=== PATIENT | male | born 1945 | race Caucasian/White ===

== ENCOUNTER 2018-07-11 08:05 | Outpatient (CLI) | payer MEDICARE, BC ==
--- NOTE | 2018-07-11 10:27 | RAD ---
LUMBAR SPINE THREE VIEWS: History: 73-year-old male with history of low back pain and lumbar radiculopathy. FINDINGS: Flexion and extension and neutral lateral views of the lumbar spine are performed. Multilevel disc os teophytosis changes are noted. No significant abnormal translation between flexion and extension. Linda inectomy changes at L4 and L5. Potential 5.3 cm diameter aneurysmal dilatation of the abdominal aorta at the level of L2 in the anterior posterior dimension. Additional imaging with ultrasound or CT sca n in this regard should be considered. IMPRESSION: Potentially 5.3 cm diameter aneurysmal dilatation/aneurysm of the abdominal aorta at approximately th e L2 vertebral body level. Additional imaging with ultrasound or CT is recommended in this regard. Ge neralized spondylosis with laminectomy changes. No abnormal translation between flexion and extension . Code T
[2018-07-11] MEDS ORDERED: Gadobenate Dimeglumine 529 MG/1 ML (20ML VIAL) ONE (12:29)
--- NOTE | 2018-07-11 13:01 | MRI ---
MRI OF THE LUMBAR SPINE WITH AND WITHOUT CONTRAST: INDICATION: History of lumbar radiculopathy. COMPARISON: Prior exam dated 06/30/17. CONTRAST: The patient received 20 cc of MultiHance for the examination. FINDINGS: There is stable postsurgical change of laminectomies at L4 and L5. There is multilevel loss of the n ormal disk signal and height at all lumbar intervertebral levels stable to the prior exam. The conus is seen to terminate at approximately L1. At the L5-S1 level, there is a broad-based disk bulge with a superimposed central disk protrusion whi ch is stable to the prior exam. There is no appreciable central canal narrowing. The loss of disk s pace height in addition to the degenerative change at this level induces mild to moderate left and mi ld right neural foraminal narrowing. The extent of the neural foraminal narrowing appears stable to t he prior study. At the L4-5 level, there is a broad-based bulge with facet hypertrophy inducing mild left and moderat e right neural foraminal narrowing which is stable. At L3-4, there is a broad-based bulge with ligamentum flavum hypertrophy and facet joint degenerative change. Previously described synovial cyst seen involving the right L4-5 facet complex is no longer demonstrated. There is stable moderate central canal narrowing at this level. The broad-based bulg e and facet degenerative change at this level induces stable moderate right and mild to moderate left neural foraminal narrowing. At L2-3, there is a broad-based bulge with facet hypertrophy inducing stable mild bilateral neural fo raminal narrowing, right greater than left. At L1-L2, there is a broad-based bulge with facet hypertrophy inducing mild bilateral neural foramina l narrowing which is stable. At T12-L1, there is a mild broad-based bulge with mild bilateral neural foraminal narrowing which is stable. Postcontrast series demonstrated no abnormal intrathecal enhancement. The visualized prevertebral an d paravertebral soft tissues appear within normal limits. No lymphadenopathy is evident. IMPRESSION: Stable postoperative lumbar spine as above. POS: [facility]
== END 2018-07-11 08:06 | disposition home or self-care (01) ==
LOC: TBSIIMAG 08:05
PROVIDERS: ATTEND Surgery
DX: M47.26 Other spondylosis with radiculopathy, lumbar region (principal); M71.30 Other bursal cyst, unspecified site; D36.10 Benign neoplasm of peripheral nerves and autonomic nervous system, unspecified; I71.4 Abdominal aortic aneurysm, without rupture; Z98.890 Other specified postprocedural states
CPT/HCPCS: 72100; 72158; 82565; A9579

== ENCOUNTER 2018-07-27 14:19 | Outpatient (CLI) | payer MEDICARE, BC ==
[~2018-07-27 14:19] MED LIST: Iopamidol 370 76% 100 ML VIAL ONE
--- NOTE | 2018-07-27 17:09 | CT ---
CTA ABDOMEN AND PELVIS WITH AND WITHOUT CONTRAST 07/27/18 Multiple axial tomograms obtained through the abdomen and pelvis pre and post IV contrast. The postc ontrast images were obtained in arterial phase following an aortogram protocol with multiplanar paulie nstructions and 3D postprocessing. INDICATIONS: Followup aneurysm. Aneurysm was apparently seen on MRI at [facility] and an outside ultrasound. FINDINGS: No evidence of abdominal aortic aneurysm identified. There is atherosclerotic changes involving the a bdominal aorta with peripheral calcification. Proximal abdominal aorta at the diaphragmatic hiatus me asures 2.6 cm diameter. Mid abdominal aorta just distal to the renal arteries measures 2.3 cm diamete r. The distal abdominal aorta just proximal to the bifurcation measures 2.0 cm. Both iliac arteries are mildly aneurysmal with fusiform ectasia of the common iliac arteries, each me asuring 1.5 cm diameter. The internal and external iliacs appear unremarkable with mild diffuse ather osclerotic change. The renal arteries are patent and no evidence of significant stenosis. There is no stenosis seen at t he origin of the celiac artery or superior mesenteric artery. Lung bases appear clear. Liver, spleen, and pancreas unremarkable. Adrenal glands appear normal. There is a 3.5 cm cyst from the lower pole right kidney. There is a nonobstructing calculus in the lo wer pole collecting structures of the right kidney measuring approximately 3 mm. No hydronephrosis or ureteral calculus seen. Bowel loops appear unremarkable. Diverticulosis of the left colon. IMPRESSION: 1. Atherosclerotic changes of abdominal aorta without evidence of aneurysmal dilatation. 2. 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 3. Nonobstructing calculus upper collecting structures right kidney. 4. Right renal cyst. POS: [facility]
== END 2018-07-27 14:20 | disposition home or self-care (01) ==
LOC: CT 14:19
PROVIDERS: ATTEND Thoracic Surgery (Cardiothoracic Vascular Surgery)
DX: I71.4 Abdominal aortic aneurysm, without rupture (principal); N28.1 Cyst of kidney, acquired; N20.0 Calculus of kidney
CPT/HCPCS: 74174; 82565

== ENCOUNTER 2018-09-22 09:20 | Outpatient (CLI) | payer MEDICARE, BC ==
[2018-09-22 10:56] LABS: PTT 33.8 SEC (22.9-36.1); Prothrombin Time 13.6 SEC (12.0-14.7)
[2018-09-22 11:03] LABS: #Eosinphils 0.1 thou/uL (0.0-0.7); #Lymphocytes 2.6 thou/uL (1.20-3.40); #Monocytes 0.8 thou/uL (0.11-0.59); #Neutrophils 4.2 thou/uL (1.40-6.50); %Basophils 0.1 % (0.0-1.0); %Eosinophils 1.5 % (0.0-10.0); %Monocytes 9.7 % (0.0-10.0); %Neutrophils 54.8 % (42.0-75.0); Hemoglobin 14.3 g/dL (14.0-18.0); Mean Corpuscular HGB CONC 32.5 g/dL (32.0-36.0); Mean Corpuscular Hemoglobin 30.4 pg (27.0-31.0); Mean Corpuscular Volume 93.6 fL (78.0-98.0); Mean Platelet Volume 8.8 fL (7.4-10.4); Platelet Count 171 thou/uL (130-400); RBC Distribution Width 12.3 % (11.5-14.5); White Blood Cell (WBC) Count 7.7 thou/uL (4.8-10.8)
[2018-09-22 11:07] LABS: Anion Gap 9 mmol/L (10-20); BUN (Urea Nitrogen) 17 mg/dL (8.4-25.7); Calc. Creatinine Clearance 0 mL/min (70-130); Calcium 9.5 mg/dL (7.8-10.44); Carbon Dioxide 30 mmol/L (23-31); Chloride 106 mmol/L (98-107); Estimated GFR-MDRD 63; Glucose 107 mg/dL (83-110); Potassium 4.5 mmol/L (3.5-5.1); Sodium 140 mmol/L (136-145)
--- NOTE | 2018-09-23 18:50 | EKG ---
Test Reason : Blood Pressure : / mmHG Vent. Rate : 057 BPM Atrial Rate : 057 BPM P-R Int : 218 ms QRS Dur : 094 ms QT Int : 438 ms P-R-T Axes : 034 -23 061 degrees QTc Int : 426 ms Sinus bradycardia with 1st degree A-V block Incomplete right bundle branch block Borderline ECG Confirmed by Kira NOE ([id number]) on 09/23/2018 6:50:47 PM Referred By: KEITH Confirmed By:Kira NOE
== END 2018-09-22 09:21 | disposition home or self-care (01) ==
LOC: LABBT 09:20
PROVIDERS: ATTEND Surgery
DX: Z01.818 Encounter for other preprocedural examination (principal); M48.061 Spinal stenosis, lumbar region without neurogenic claudication; M54.16 Radiculopathy, lumbar region
CPT/HCPCS: 80048; 85025; 85610; 85730; 93005; 93010

== ENCOUNTER 2018-09-29 09:16 | Day surgery (SDC) | payer MEDICARE, BC ==
[2018-09-22 09:40] VITALS: BMI 31.4
[2018-09-29] MEDS ORDERED: Thrombin 5000 UNITS/5 ML VIAL ONE (11:40)
[2018-09-29] MEDS ORDERED: Bacitracin Zinc Ointment 30 gm TUBE ONE (11:40)
[2018-09-29] MEDS ORDERED: Sodium Chloride 0.9% 10 ML ONE (11:40)
[2018-09-29] MEDS ORDERED: CEFAZOLIN 2 GM/50 ML BAG ONE (11:49)
[2018-09-29] MEDS ORDERED: Fentanyl 100 MCG/2 ML VIAL ONE ×4 (12:54→16:57)
[2018-09-29] MEDS ORDERED: Metoclopramide HCl 10 MG/2 ML VIAL ONE (13:43)
[2018-09-29] MEDS ORDERED: Dexamethasone 20 MG/5 ML VIAL ONE (13:43)
[2018-09-29] MEDS ORDERED: PHENYLEPHRINE-NS 100 MCG/ML 10 ML SYRINGE ONE (13:43)
[2018-09-29] MEDS ORDERED: Lidocaine 1% PF 5 ML VIAL ONE (13:43)
[2018-09-29] MEDS ORDERED: PROPOFOL 200 MG/20 ML VIAL ONE (13:43)
[2018-09-29] MEDS ORDERED: Glycopyrrolate 0.2 MG/ML 5 ML SYRINGE ONE (13:43)
[2018-09-29] MEDS ORDERED: ePHEDrine/0.9% NaCl/PF SYRINGE 50 mg/10 ml ONE (13:43)
[2018-09-29] MEDS ORDERED: Ondansetron PF 4 MG/2 ML Vial ONE (13:43)
[2018-09-29] MEDS ORDERED: Phenylephrine HCL 10 MG/ML VIAL ONE (14:34)
[2018-09-29] MEDS ORDERED: HYDROmorphone 2 MG/ML VIAL SLOW IVP PRN (16:23)
[2018-09-29] MEDS ORDERED: Promethazine HCl 25 MG/ML VIAL SLOW IVP PRN (16:23)
[2018-09-29] MEDS ORDERED: Ondansetron HCl/PF 4 MG/2 ML Vial IVP PRN (16:23)
[2018-09-29] MEDS ORDERED: Promethazine HCl 25 MG/ML VIAL IM PRN ×2 (16:23→16:30)
[2018-09-29] MEDS ORDERED: Morphine Sulfate 2 MG/ML SYRINGE SLOW IVP PRN (16:23)
[2018-09-29] MEDS ORDERED: Meperidine HCl/PF 25 MG/ML VIAL SLOW IVP PRN (16:23)
[2018-09-29] MEDS ORDERED: PACU-Morphine 4MG/ML VIAL SLOW IVP PRN (16:23)
[2018-09-29] MEDS ORDERED: Acetaminophen 325 MG TAB PO PRN (16:30)
[2018-09-29] MEDS ORDERED: Fleet Enema 133 ML BOT PR PRN (16:30)
[2018-09-29] MEDS ORDERED: Morphine 4 MG/ML VIAL SLOW IVP PRN (16:30)
[2018-09-29] MEDS ORDERED: traMADol HCl 50 MG TAB PO PRN (16:30)
[2018-09-29] MEDS ORDERED: Bisacodyl 10 MG SUPP PR PRN (16:30)
[2018-09-29] MEDS ORDERED: Acetaminophen/Codeine 30-300mg Tablet PO PRN (16:30)
[2018-09-29] MEDS ORDERED: Milk Of Magnesia 30 ML UDCUP PO PRN (16:30)
[2018-09-29] MEDS ORDERED: Mag-Al 1200 mg/1200 mg/30 ML UDCUP PO PRN (16:30)
[2018-09-29] MEDS ORDERED: Albuterol Sulfate 1.25 MG/3 ML NEB NEB PRN (16:31)
[2018-09-29] MEDS ORDERED: PROVENTIL INHALER 6.7 G (200 INHALATIONS) INH PRN (16:31)
[2018-09-29] MEDS: HYDROcodone/Acetaminophen 7.5/325 mg Tablet PO PRN (18:06)
[2018-09-29] MEDS: CEFAZOLIN 2 GM/50 ML BAG IVPB SCH (20:57)
[2018-09-29] MEDS: tiZANidine HCl 4 MG TAB PO PRN (20:57)
[2018-09-29] MEDS: cloNIDine 0.1 MG TAB PO SCH (20:58)
[2018-09-29] MEDS: Sodium Chloride 0.9% 1,000 ML IV SCH (20:59)
[2018-09-29] MEDS ORDERED: Montelukast Sodium 10 mg Tablet PO SCH (21:00)
[2018-09-29] MEDS ORDERED: Rosuvastatin 10 MG TAB PO SCH (21:00)
[2018-09-29] MEDS ORDERED: Finasteride 5 MG TAB PO SCH (21:00)
[2018-09-30] MEDS: HYDROcodone/Acetaminophen 7.5/325 mg Tablet PO PRN ×2 (03:29→10:39)
[2018-09-30] MEDS: CEFAZOLIN 2 GM/50 ML BAG IVPB SCH (03:29)
[2018-09-30 05:15] VITALS: TEMP 98
[2018-09-30] MEDS: tiZANidine HCl 4 MG TAB PO PRN (06:18)
[2018-09-30 07:53] VITALS: BP 121/73
[2018-09-30] MEDS: cloNIDine 0.1 MG TAB PO SCH (08:49)
[2018-09-30] MEDS: Sodium Chloride 0.9% 1,000 ML IV SCH (08:52)
[2018-09-30] MEDS ORDERED: Tamsulosin HCl 0.4 MG CAP PO SCH (09:00)
[2018-09-30] MEDS ORDERED: Prevnar 13-Val Conj/PF 0.5 ML SYRINGE IM ONE (09:00)
--- NOTE | 2018-09-30 10:11 | PRG ---
DATE OF SERVICE: 09/30/2018 SUBJECTIVE: Mr. Vanessa is postoperative day #1 from multilevel lumbar decompression and lumbar diskectomy. We will plan on dismissing him today. Followup has been arranged. Job ID: [id number]
--- NOTE | 2018-09-30 10:19 | OP ---
DATE OF PROCEDURE: 09/29/2018 OPERATING ROOM: 11. WOUND CLASSIFICATION: Type 1 wound. CLINICAL SERVICES PROFESSIONAL: Carrington Wong PA-C PREPROCEDURE DIAGNOSES: Multilevel lumbar stenosis with low back and leg pain with right L4-L5 disk extrusion with lateral component and compression of the exiting right L4 nerve root and traversing right L5 nerve roots. POSTPROCEDURE DIAGNOSES: Multilevel lumbar stenosis with low back and leg pain with right L4-L5 disk extrusion with lateral component and compression of the exiting right L4 nerve root and traversing right L5 nerve roots. PROCEDURES PERFORMED: 1. L2-L3 and L3-L4 laminectomies, partial facetectomies, and foraminotomies. 2. Right revision hemilaminotomy, foraminotomy, and diskectomy. 3. Right L4-L5 trans-facet approach for lateral diskectomy for decompression of the exiting right L4 nerve root. 4. Use of operative microscope for microdissection. DESCRIPTION OF PROCEDURE: After informed consent was obtained, the patient was brought to OR. Proper patient pause and identification were carried out. He was placed under excellent general endotracheal anesthesia and positioned prone on the OR table. Appropriate points were padded. We identified the prior lumbar wound and a portion of this was extended cephalad. This area was sterilely cleansed, prepared, and draped. Proper patient pause and identification were carried out. The wound was then opened with a combination of sharp, monopolar, and blunt dissection in the segments were identified with localization film and a laminectomy was performed at L2-L3 and L3-L4 with partial facetectomies and foraminotomies. We then turned our attention to the prior right L4-L5 segment and a revision hemilaminotomy was performed there with diskectomy. We then turned our attention to a trans-facet approach in the right side to allow for decompression of the exiting right L4 nerve root through a lateral diskectomy trans-facet approach. We had excellent decompression of the exiting right L4 nerve root and the traversing right L5 nerve root. Copious irrigation occurred throughout. We used the microscope for the diskectomy portions. Hemostasis was maximized. The wound was then closed in anatomic layers following sprinkling of vancomycin powder. There was no spinal fluid leak. The patient then emerged from anesthesia. Job ID: [id number]
== END 2018-09-30 10:30 | disposition home or self-care (01) ==
LOC: SDC 09:16 → SURG B 16:30 → UNDOADMOB 16:30 → SDC 09-30 10:30 → UNDODISOB 09-30 10:30
PROVIDERS: ATTEND Surgery
PROC: 01NB0ZZ Release Lumbar Nerve, Open Approach (ICD-10-PCS; principal; 2018-09-29)
PROC: 0SB20ZZ Excision of Lumbar Vertebral Disc, Open Approach (ICD-10-PCS; 2018-09-29)
DX: M48.061 Spinal stenosis, lumbar region without neurogenic claudication (principal); M51.26 Other intervertebral disc displacement, lumbar region; I25.10 Atherosclerotic heart disease of native coronary artery without angina pectoris; K21.9 Gastro-esophageal reflux disease without esophagitis; N40.0 Benign prostatic hyperplasia without lower urinary tract symptoms; J45.909 Unspecified asthma, uncomplicated; M19.90 Unspecified osteoarthritis, unspecified site; I10 Essential (primary) hypertension; Z79.82 Long term (current) use of aspirin; Z79.899 Other long term (current) drug therapy; Z95.1 Presence of aortocoronary bypass graft
CPT/HCPCS: 76001; 96374; J1100; J2001; J2370; J2405; J2704; J2765; J3010; J3370; J3490

== ENCOUNTER 2019-05-17 10:17 | Outpatient (CLI) | payer MEDICARE, BC ==
--- NOTE | 2019-05-17 13:36 | MRI ---
MRI LUMBAR SPINE WITH AND WITHOUT CONTRAST: DATE: 05/17/19 HISTORY: 73-year-old male with low back pain, lumbar radiculopathy, and lumbar spondylosis. COMPARISON: 07/11/18. TECHNIQUE: Multiple sequences obtained in axial and sagittal planes, pre and post IV injection of gadolinium-bas ed contrast agent: 20 mL Multihance. FINDINGS: For the purposes of this report, it will be assumed that there are 5 lumbar-type vertebrae. The vert ebral body heights are maintained. Moderate to severe disc space narrowing at L4-5 where there is Modic type I marrow edema on the right side. Mild to moderate disc space narrowing at L2-3 and L3-4. Mild disc space narrowing L5-S1. The d egree of disc space narrowing is similar to that of the prior MRI. No major spondylolisthesis. Slight degenerative retrolisthesis of L2 on L3. Cauda equina is arranged in a symmetrical, normal distribut ion throughout the thecal sac. The findings by individual levels are as follows: T12-L1: Tiny left paracentral focal disc protrusion. Otherwise normal. L1-2: Essentially normal. L2-3: New midline decompressive laminectomy defect results in now generous caliber of thecal sac. Mod erate bilateral neural foraminal stenosis. Enhancement of postsurgical scar tissue at posterior edge of disc space. L3-4: New midline laminectomy defect results in generous caliber of thecal sac. Small amount of an en hancing epidural scar tissue at right lateral recess. Moderate bilateral facet DJD. Moderate to sever e right neural foraminal stenosis. Moderate left neural foraminal stenosis. L4-5: Again noted is the old midline laminectomy defect resulting in generous caliber of spinal canal and thecal sac. Enhancing postsurgical scar tissue in the right lateral recess surrounding the right L5 nerve root. Mild to moderate right facet DJD. Mild left facet DJD. Moderate to severe right neura l foraminal stenosis and moderate left neural foraminal stenosis. L5-S1: Old midline laminectomy defect again noted. Generous caliber of spinal canal and thecal sac. M oderate bilateral facet DJD, right greater than left. Moderate right neural foraminal stenosis and mo derate to severe left neural foraminal stenosis. No significant change at this level. IMPRESSION: 1. In addition to the old midline laminectomies at L4-5 and L5-S1, there are now new midline kirkland inectomies at L2-3 and L3-4. Caliber of spinal canal and thecal sac are generous throughout all level s of laminectomies. 2. Postsurgical scar tissue around the nerve roots in the right lateral recess at L4-5 and to a lesser degree at L3-4. 3. No high grade central spinal canal stenosis at any level. 4. Several levels of high grade neural foraminal stenosis bilaterally. MARK Hearn POS: [facility]
--- NOTE | 2019-05-17 13:54 | RAD ---
EXAM: LUMBAR SPINE FOUR VIEWS: 05/17/19 HISTORY: M54.16, left radiculopathy, status post laminectomy, low back pain. Exam includes standing AP, lateral, and flexion and extension lateral views. Multilevel disc osteophy tosis and extensive laminectomy changes are noted of the mid and lower lumbar spine. No abnormal rosario slation between flexion and extension. There is very mild anterolisthesis of L3 on L4 and very mild r etrolisthesis of L4 on L5. IMPRESSION: Spondylosis with disc osteophytosis and facet arthrosis. Postop laminectomy. No abnormal translation between flexion and extension. POS: [facility]
== END 2019-05-17 10:18 | disposition home or self-care (01) ==
LOC: SCSMRI 10:17
PROVIDERS: ATTEND Surgery
DX: M47.26 Other spondylosis with radiculopathy, lumbar region (principal); M48.061 Spinal stenosis, lumbar region without neurogenic claudication; M71.30 Other bursal cyst, unspecified site; D36.10 Benign neoplasm of peripheral nerves and autonomic nervous system, unspecified; Z98.890 Other specified postprocedural states
CPT/HCPCS: 72120; 72158; 82565

== ENCOUNTER 2019-07-19 15:29 | Outpatient (CLI) | payer MEDICARE, BC ==
--- NOTE | 2019-07-19 15:59 | RAD ---
CERVICAL SPINE: 07/19/19 Five views. HISTORY: Leg pain. Cervical vertebrae maintain height and alignment. The disc spaces are preserved. Mild degenerative c hanges are noted with small osteophytes seen anteriorly from the cervical vertebrae. No evidence of s ignificant listhesis seen with flexion or extension. There is mild to moderate facet hypertrophy noted. IMPRESSION: There are mild degenerative changes as described. POS: [facility]
== END 2019-07-19 15:30 | disposition home or self-care (01) ==
LOC: TBSIIMAG 15:29
PROVIDERS: ATTEND Surgery
DX: M54.2 Cervicalgia (principal); M47.812 Spondylosis without myelopathy or radiculopathy, cervical region
CPT/HCPCS: 72050

== ENCOUNTER 2020-07-18 09:49 | Outpatient (CLI) | payer MEDICARE, BC ==
--- NOTE | 2020-07-18 15:02 | RAD ---
THREE VIEWS OF THE SACROILIAC JOINTS: 07/18/20 COMPARISON: None. HISTORY: Sacroiliitis. Right sacroiliac pain is greater than left. FINDINGS: Three views of the sacroiliac joints shows a symmetric appearance of the sacroiliac joints. There is mild sclerosis surrounding both sacroiliac joints. No fusion is seen. No osseous erosions are present . The sacral ala are symmetric. IMPRESSION: Mild bilateral sacroiliac disease. POS: [facility]
== END 2020-07-18 09:50 | disposition home or self-care (01) ==
LOC: BICRAD 09:49
PROVIDERS: ATTEND Family Medicine
DX: M46.1 Sacroiliitis, not elsewhere classified (principal); M53.3 Sacrococcygeal disorders, not elsewhere classified
CPT/HCPCS: 72202

== ENCOUNTER 2022-08-20 07:39 | Outpatient (CLI) | payer MEDICARE ==
[2022-08-20] MEDS ORDERED: Iopamidol 370 76% 100 ML VIAL ONE (12:26)
== END 2022-08-20 07:40 | disposition home or self-care (01) ==
LOC: CT 07:39
PROVIDERS: ATTEND Internal Medicine Hematology & Oncology
DX: C22.0 Liver cell carcinoma (principal); Z90.49 Acquired absence of other specified parts of digestive tract
CPT/HCPCS: 71260; 74183; 82565; Q9967